=== PATIENT | female | born 1970 | race Caucasian/White ===

== ENCOUNTER 2018-03-09 18:04 | Emergency (ER) | payer BC, OTHER ==
[2018-03-09 18:17] VITALS: BP 99/54
--- NOTE | 2018-03-09 18:42 | UC ---
Hand/Wrist HPI - HPI Summary HPI Summary: The patient is a 48-year-old female that injured her left thumb to the can in the garden. She hyperextended her left thumb. He is right hand dominant. The pain is in the M CP joint. There is no bruising. - History Of Current Complaint Chief Complaint: UCUpperExtremity Stated Complaint: HAND INJURY Time Seen by Provider: 03/09/18 18:11 Hx Obtained From: Patient Hx Last Menstrual Period: 3 WEEKS AGO Onset/Duration: Sudden Onset, Lasting Hours Severity Initially: Moderate Severity Currently: Moderate Pain Intensity: 6 Pain Scale Used: 0-10 Numeric Character Of Pain: Dull, Aching Aggravating Factor(s): Movement Alleviating Factor(s): Rest, Ice Associated Signs And Symptoms: Positive: Negative Related History: Dominant Hand Right - Allergies/Home Medications Allergies/Adverse Reactions: Allergies Allergy/AdvReac Type Severity Reaction Status Date / Time Egg Derived Allergy GAS Verified 03/09/18 18:17 Home Medications: Home Medications Garlic 1 each PO 03/09/18 [History] [place]-3 Fatty Acids (Nf) [Fish Oil (NF)] 1,000 mg PO DAILY 03/09/18 [History Confirmed 03/09/18] Supplements* 03/09/18 [History] Zinc 03/09/18 [History] PMH/Surg Hx/FS Hx/Imm Hx Previously Healthy: Yes - Surgical History Surgical History: Yes Surgery Procedure, Year, and Place: - Family History Known Family History: Positive: Hypertension - Social History Alcohol Use: None Substance Use Type: None Smoking Status (MU): Never Smoked Tobacco Review of Systems Constitutional: Negative Skin: Negative Eyes: Negative ENT: Negative Respiratory: Negative Cardiovascular: Negative Gastrointestinal: Negative Genitourinary: Negative Motor: Negative Neurovascular: Negative Musculoskeletal: Arthralgia Neurological: Negative Psychological: Negative Is Patient Immunocompromised?: No All Other Systems Reviewed And Are Negative: Yes Physical Exam Triage Information Reviewed: Yes Appearance: Well-Appearing, No Pain Distress, Well-Nourished Vital Signs: Initial Vital Signs Temp 98.5 F 03/09/18 18:12 Pulse 66 03/09/18 18:12 Resp 16 03/09/18 18:12 BP 99/54 03/09/18 18:12 Pulse Ox 98 03/09/18 18:12 Vital Signs Reviewed: Yes Eyes: Positive: Conjunctiva Clear ENT: Negative: Nasal congestion, Nasal drainage, Trismus, Muffled voice, Hoarse voice Neck: Positive: Supple, Nontender, No Lymphadenopathy Respiratory: Positive: Lungs clear, Normal breath sounds, No respiratory distress, No accessory muscle use Cardiovascular: Positive: RRR, No Murmur Musculoskeletal: Positive: ROM Intact, No Edema, Other: - tender left thumb medial and lateral joint lines Neurological: Positive: Alert Psychological Exam: Normal Psychological: Positive: Decreased Age Appropriate Behavior Diagnostics - Radiology No standard instances Xray Interpretation: No Acute Changes Radiology Interpretation Completed By: ED Physician Hand/Wrist Course/Dx - Differential Dx/Diagnosis Provider Diagnoses: left thumb sprain Discharge - Sign-Out/Discharge Documenting (check all that apply): Patient Departure All imaging exams completed and their final reports reviewed: No - Discharge Plan Condition: Stable Disposition: HOME Patient Education Materials: Finger Sprain (ED) Referrals: Vinicio Foreman DO [Primary Care Provider] - 1 Week (recheck if not improved) Additional Instructions: thumb spica splint ice tylenol or advil if needed - Billing Disposition and Condition Condition: STABLE Disposition: Home
--- NOTE | 2018-03-10 07:34 | RAD ---
Indication: Left thumb injury 3 views of the left thumb are reviewed. There is no fracture or dislocation. No other bone or joint abnormality is noted. IMPRESSION: No fracture of the left thumb is noted. R0
--- NOTE | 2018-03-10 08:45 | UC ---
- Progress Note Progress Note: Patient Name: REBECCA TREJO Medical Record#: [id number] Ordering Physician: Yevgeniy Smith MD Acct.#: [id number] : 1970 Age: 48 Sex: F Location: [facility] Exam Date: 03/09/181825 ADM Status: [facility] ER Order Information: THUMB LEFT Accession Number: [id number] CPT: 24652 Indication: Left thumb injury 3 views of the left thumb are reviewed. There is no fracture or dislocation. No other bone or joint abnormality is noted. IMPRESSION: No fracture of the left thumb is noted. R0 <Electronically signed by Cheyanne Contreras MD in [place]> 03/10/18730 Dictated By: Cheyanne Contreras MD Dictated Date/Time: 03/10/18730 Transcribed Date/Time: 03/10/18729 Copy to: CC:Yevgeniy Smith MD; Vinicio Foreman DO Imaging - [facility] Imaging - [facility] [address] [place] [address] ph ([phone]) ph ([phone]) ph ([phone]) This report is only to be considered final once signed by the Provider(s) as displayed in the "<Electronically Signed by >" field (s). Absence of a signature indicates the report is in a draft status and still needs to be finalized. In the event this document was created by someone other than the signing Provider, the individual initiating the document will be listed in the "Entered by:" or "Dictated by:" clark. 1 of 1 Discharge - Sign-Out/Discharge Documenting (check all that apply): Post-Discharge Follow Up All imaging exams completed and their final reports reviewed: Yes - Discharge Plan Condition: Stable Disposition: HOME Patient Education Materials: Finger Sprain (ED) Referrals: Vinicio Foreman DO [Primary Care Provider] - 1 Week (recheck if not improved) Additional Instructions: thumb spica splint ice tylenol or advil if needed - Billing Disposition and Condition Condition: STABLE Disposition: Home
== END 2018-03-09 18:55 | disposition home or self-care (01) ==
LOC: UCEAST 18:04
DX: S63.602A Unspecified sprain of left thumb, initial encounter (principal); X50.9XXA Other and unspecified overexertion or strenuous movements or postures, initial encounter; Y93.9 Activity, unspecified; Y92.89 Other specified places as the place of occurrence of the external cause; Z91.012 Allergy to eggs
CPT/HCPCS: 99201; G0463